=== PATIENT | male | born 1955 | race Two or more races ===

== ENCOUNTER 2016-10-28 17:05 | Inpatient (IN) | payer MEDICARE, MEDICAID ==
[~2016-10-28] VITALS: Ht 182.9 cm; Wt 122.5 kg
[~2016-10-28 17:05] MED LIST: ALLOPURINOL300 M1 ORAL; AMLODIPINE BESY10 MG ORAL; ASPIRIN-LOW81 MG ORAL; BP med; CALCITRIOL0.25 MCG PO; CARVEDILOL25 MG ORAL; FOLIC ACID1 MG ORAL; FUROSEMIDE40 MG ORAL; FUROSEMIDE80 MG ORAL; HYDRALAZINE HCL25 M1 ORAL; KEFLEX500 MG ORAL; LASIX40 MG ORAL; LEVEMIR FL100 UNIT/1 SUBQ; LIPITOR80 MG ORAL; LOVENOX10 M3 SUBQ; METOPROLOL TART50 MG ORAL; NORCO 5-325 TA1 EACH ORAL; NOVOLIN 70100 UNIT/1 SUBQ; RANITIDINE HCL150 MG ORAL; RENVELA800 MG ORAL; TAMSULOSIN HCL0.4 MG ORAL; WARFARIN SODIU2.5 MG ORAL; ZAROXOLYN2.5 MG ORAL
--- NOTE | 2016-10-28 17:54 | Emergency Room Report ---
History of Present Illness General Chief Complaint: Generalized Weakness Source: Patient Present Illness HPI Patient is a 61-year-old male who presented after increased weakness and dizziness. The patient noted to have prior history of end-stage renal disease and is normally dialyzed Saturday. The patient said he was dialyzed yesterday. The patient reported having blood sugar in the 60s at the time. The patient normally has a blood sugars which is slightly more elevated. The patient denies any shortness of breath. He denies any recent fevers. He reports some dietary indiscretion Allergies: Coded Allergies: No Known Allergies (Unverified , 06/01/14) Patient History Past Medical History: see triage record, DM, HTN, renal disease, dialysis Reviewed Nursing Documentation: PMH: Agreed, PSxH: Agreed Nursing Documentation-PMH Past Medical History: No History, Except For Hx Cardiac Problems: Yes Hx Hypertension: Yes Hx Diabetes: Yes Hx Cancer: No Hx Gastrointestinal Problems: Yes Hx Dialysis: Yes - , Sat Hx Neurological Problems: No Hx Cerebrovascular Accident: Yes - 2012 Review of Systems All Other Systems: negative except mentioned in HPI Physical Exam Vital Signs Date Time Temp Pulse Resp B/P Pulse Ox O2 Delivery O2 Flow Rate FiO2 10/28/16 17:13 97.7 86 18 115/61 98 Room Air Sp02 EP Interpretation: reviewed, normal General Appearance: normal inspection, well appearing, no apparent distress, alert, GCS 15 Head: atraumatic ENT: normal ENT inspection, hearing grossly normal, normal voice Neck: normal inspection, full range of motion, supple, no bony tend Respiratory: normal inspection, lungs clear, normal breath sounds, no respiratory distress, no retraction, no wheezing Cardiovascular #1: regular rate, rhythm, no edema Gastrointestinal: normal inspection, normal bowel sounds, non tender, soft, no guarding, no hernia Genitourinary: no CVA tenderness Musculoskeletal: normal inspection, back normal, normal range of motion Neurologic: normal inspection, alert, oriented x3, responsive, dry ice maker III-XII nml as tested, speech normal Psychiatric: normal inspection, judgement/insight normal, mood/affect normal Skin: normal inspection, normal color, no rash Medical Decision Making Diagnostic Impression: Primary Impression: ESRD (end stage renal disease) on dialysis Additional Impressions: Hypoglycemia associated with diabetes Brain edema ER Course Patient presented for weakness. Differential diagnosis included was not limited to anemia, urinary tract infection, electrolyte abnormality, hypothyroidism, myocardial infarction, myasthenia gravis, dehydration, among others. The patient noted to have a nonfocal neurologic exam. Because of complexity of patient's case laboratory testing and imaging studies were ordered. EKG interpreted by me showed normal sinus rhythm with a rate of [address] changes. Patient noted have some peaking of his T waves . Patient placed on a panel monitor. Rhythm strips interpreted by me showed normal sinus rhythm with rate of 82 without PVCs or ectopyCT the head read by radiology showed some edema consistent with a possible mass. There is no midline shift noted. Patient states symptoms were on the left side. The patient states he's had prior CVA on the right side.Dr. Jus Gómez was contacted for inpatient management Labs Test 10/28/16 17:55 White Blood Count 8.9 K/UL (4.8-10.8) Red Blood Count 3.92 M/UL (4.70-6.10) Hemoglobin 12.0 G/DL (14.2-18.0) Hematocrit 37.9 % (42.0-52.0) Mean Corpuscular Volume 97 FL (80-99) Mean Corpuscular Hemoglobin 30.5 PG (27.0-31.0) Mean Corpuscular Hemoglobin Concent 31.6 G/DL (32.0-36.0) Red Cell Distribution Width 16.2 % (11.6-14.8) Platelet Count 181 K/UL (150-450) Mean Platelet Volume 7.5 FL (6.5-10.1) Neutrophils (%) (Auto) 67.3 % (45.0-75.0) Lymphocytes (%) (Auto) 16.2 % (20.0-45.0) Monocytes (%) (Auto) 9.9 % (1.0-10.0) Eosinophils (%) (Auto) 4.5 % (0.0-3.0) Basophils (%) (Auto) 2.1 % (0.0-2.0) Last Vital Signs Date Time Temp Pulse Resp B/P Pulse Ox O2 Delivery O2 Flow Rate FiO2 10/28/16 17:13 97.7 86 18 115/61 98 Room Air Status: unchanged Disposition: ADMITTED INPATIENT Condition: Serious Morgan Squires Oct 28, 2016 17:54
[2016-10-28 18:16] LABS: BASOPHILS % (AUTO) 2.1 % (0.0-2.0); EOSINOPHILS % (AUTO) 4.5 % (0.0-3.0); LYMPHOCYTES % (AUTO) 16.2 % (20.0-45.0); MEAN CORPUSCULAR HEMOGLOBIN 30.5 PG (27.0-31.0); MEAN CORPUSCULAR HGB CONC 31.6 G/DL (32.0-36.0); MEAN CORPUSCULAR VOLUME 97 FL (80-99); MEAN PLATELET VOLUME 7.5 FL (6.5-10.1); MONOCYTES % (AUTO) 9.9 % (1.0-10.0); NEUTROPHILS % (AUTO) 67.3 % (45.0-75.0); PLATELET COUNT 181 K/UL (150-450); RED BLOOD COUNT 3.92 M/UL (4.70-6.10); RED CELL DISTRIBUTION WIDTH 16.2 % (11.6-14.8); WHITE BLOOD COUNT 8.9 K/UL (4.8-10.8)
[2016-10-28 18:48] LABS: ALBUMIN/GLOBULIN RATIO 0.8 (1.0-2.7); CALCIUM 10.4 mg/dL (8.6-10.2); CREATININE 10.7 mg/dL (0.7-1.2); GLOMERULAR FILTRATION RATE 4.9 mL/min (>60); TOTAL PROTEIN 8.5 g/dL (6.6-8.7)
[2016-10-28 18:50] VITALS: BP 119/57
[2016-10-28 18:50] LABS: POTASSIUM 6.1 mEQ/L (3.4-4.9)
[2016-10-28 18:56] LABS: TROPONIN I < 0.30 ng/mL (<=0.30)
[2016-10-28] MEDS ORDERED: Sodium Polystyrene Sulfonate 15gm Powder ORAL ONE (19:00)
[2016-10-28 19:23] LABS: CKMB 4.1 ng/mL (< 6.7)
[2016-10-28 19:40] VITALS: BP 131/55
[2016-10-28] MEDS ORDERED: Calcium Gluconate 1gm/10ml vial IVP ONE (20:30)
[2016-10-28 21:35] VITALS: BP 148/61
--- NOTE | 2016-10-28 22:13 | Consultation ---
Consult Note Consult Note # [id number] Assessment/Plan status: 1) Inability to ambulate- ? Neuropathy (2) Chronic Cellulitis LEs (3) ESRD (end stage renal disease) on dialysis, High K (4) IDDM (insulin dependent diabetes mellitus) (5) Peripheral edema (6) HTN (hypertension) Plan: Neuro eval HD in am BP and BS control MARIANNE CLEMENTE Oct 28, 2016 22:13
[2016-10-28 23:15] VITALS: BP 142/64
[2016-10-28 23:40] VITALS: BP 117/55
[2016-10-29] MEDS: NovoLOG Insulin Flexpen SUBQ SCH ×4 (05:54→22:05)
[2016-10-29 06:46] VITALS: BP 136/63
[2016-10-29 08:00] VITALS: BP 99/45
[2016-10-29] MEDS: Carvedilol 25mg Tab ORAL SCH ×2 (08:30→22:07)
[2016-10-29 08:36] LABS: BASOPHILS % (AUTO) 1.6 % (0.0-2.0); EOSINOPHILS % (AUTO) 5.6 % (0.0-3.0); LYMPHOCYTES % (AUTO) 17.6 % (20.0-45.0); MEAN CORPUSCULAR HEMOGLOBIN 30.7 PG (27.0-31.0); MEAN CORPUSCULAR HGB CONC 31.9 G/DL (32.0-36.0); MEAN CORPUSCULAR VOLUME 96 FL (80-99); MEAN PLATELET VOLUME 7.2 FL (6.5-10.1); MONOCYTES % (AUTO) 10.4 % (1.0-10.0); NEUTROPHILS % (AUTO) 64.8 % (45.0-75.0); PLATELET COUNT 178 K/UL (150-450); RED BLOOD COUNT 3.73 M/UL (4.70-6.10); RED CELL DISTRIBUTION WIDTH 16.1 % (11.6-14.8); WHITE BLOOD COUNT 8.2 K/UL (4.8-10.8)
[2016-10-29] MEDS: Aspirin EC 81mg tab ORAL SCH (08:52)
[2016-10-29] MEDS: Docusate 100mg cap ORAL SCH ×3 (08:52→17:12)
[2016-10-29 08:54] LABS: ALANINE AMINOTRANSFERASE 6 U/L (3-41); ALBUMIN/GLOBULIN RATIO 0.8 (1.0-2.7); ANION GAP 23 (5-15); ASPARTATE AMINO TRANSFERASE 11 U/L (5-40); CALCIUM 9.5 mg/dL (8.6-10.2); CARBON DIOXIDE 16 mEQ/L (20-30); CHLORIDE 91 mEQ/L (98-107); CHOLESTEROL 130 mg/dL (< 200); CHOLESTEROL/HDL RATIO 3.8 (3.3-4.4); CRP QUANT 3.1 mg/dL (< 0.5); GLOMERULAR FILTRATION RATE 4.3 mL/min (>60); HEMOLYSIS 1; LDL CHOLESTEROL (CALC.) 71 mg/dL (60-99); MAGNESIUM 2.4 mg/dL (1.7-2.5); PHOSPHORUS 10.6 mg/dL (2.5-4.8); SODIUM 130 mEQ/L (135-145); TOTAL PROTEIN 7.8 g/dL (6.6-8.7)
[2016-10-29 08:56] LABS: POTASSIUM 6.2 mEQ/L (3.4-4.9)
--- NOTE | 2016-10-29 09:41 | Diagnostic Imaging Report ---
Indications: 2-3 day history of dizziness, weakness, imbalance; right temporoparietal white matter edema on CT scan requiring further evaluation Technique: Coronal, Sagittal and axial T1 weighted and T2-weighted FLAIR, axial T2-weighted fat saturated fast spin echo propeller, T2*-weighted gradient echo, and diffusion sequences of the brain were performed without IV gadolinium administration. Findings: Comparison: Noncontrast CT brain performed earlier today 13 x 15 x 17 sharply circumscribed mass is present in the anterior periphery of the right middle cranial fossa, broadly based against the endosteal surface of the skull, indenting brain parenchyma. It is generally isointense to adler matter on T1-weighted images, slightly hyperintense on T2-weighted images, and demonstrates no susceptibility artifact on gradient echo images were restricted diffusion. There is a prominent amount of signal change compatible with edema in the subjacent right temporal white matter, extending into the white matter adjacent portions of right parietal operculum, internal and external capsules. No overlying adler matter edema is evident. There is suggestion of mild segmental, asymmetric thickening of the overlying skull. 3 cm wedge-shaped, peripherally based area of signal change/parenchymal loss is present in the periphery of the posterior aspect of the left parietal lobe with subjacent surrounding white matter T2 signal hyperintensity. Additional foci of T2 signal hyperintensity are scattered throughout the bilateral cervical periventricular, deep, and subcortical white matter. Some of the deeper lesions are oriented perpendicularly to the long axis of the lateral ventricles. No obvious corpus callosum involvement. No evidence of hemorrhage, other signal abnormality, mass effect, midline shift, hydrocephalus, or increased intracranial pressure. No restricted diffusion. Central vascular flow voids are preserved. Sharply circumscribed, smoothly marginated ovoid masslike lesion is present in the region of posterior aspect of each lateral rectus muscle of the orbits. These are best demonstrated on axial T2 fat-saturated fast spin-echo images, the right lesion measuring 10 x 3 mm and the left 12 x 6 mm. Each is near-fluid hypointense on T1-weighted images and moderately hyperintense on T2-weighted images including fat-saturated images, though not as intense as fluid. The superior orbital vein is prominent in each orbit and there is suggestion of each lesion communicating with these. No other obvious orbital abnormality demonstrated. IMPRESSION: 1.7 cm mass in the right middle cranial fossa as described, evaluation limited due to lack of postgadolinium sequencing, but most likely represent meningioma. This is likely responsible for subjacent white matter edema. Postgadolinium imaging recommended with immediate dialysis thereafter. Old infarct with surrounding gliosis posterior aspect left parietal lobe Bilateral cervical white matter multifocal signal hyperintensity, nonspecific, most likely chronic microangiopathic in nature. However, other etiologies including demyelinating disease must be considered. Bilateral intraorbital extraconal lesions as described, nonspecific. These may the do not definitely represent segments of enlarged bilateral superior orbital veins. Dedicated MRI of the orbits without and with gadolinium recommended with immediate dialysis thereafter.
[2016-10-29] MEDS: Aluminum Hydroxide Gel Susp 15ml ORAL SCH ×4 (10:25→22:06)
--- NOTE | 2016-10-29 11:20 | Diagnostic Imaging Report ---
Indications: 2-3 days of cephalgia, weakness, imbalance Technique: Continuous helical CT imaging of the brain was performed with nonionic exposure control on a Siemens sensation [address] scanner. Axial and coronal images were reconstructed at 5 mm slice thickness and interval. CTDI volume(s): 70 mGy Total DLP: 1383 mGy-cm Findings: Comparison: None Extensive low attenuation is present throughout the white matter of the right temporal lobe, extending into the white matter adjacent portions of right parietal operculum, internal and external capsules. No obvious adler matter involvement. Wedge-shaped, peripherally based focus of low attenuation/parenchymal loss posterior aspect left parietal lobe. Mild low attenuation bilateral cerebral periventricular white matter. Ventricles, cisterns, and sulci are diffusely prominent. No evidence of mass or hemorrhage, mass effect, midline shift, hydrocephalus, or increased intracranial pressure. Bone window images are unremarkable. Visualized paranasal sinuses and mastoid air cells are clear. IMPRESSION: Right temporoparietal white matter edema, atypical for ischemia/infarct, coronary neoplasm or inflammatory process. MRI of the brain without and with gadolinium recommended for further evaluation. Old infarct posterior aspect left parietal lobe. Bilateral cerebral periventricular white matter low attenuation, nonspecific, likely chronic microvascular ischemic in nature. Atrophy Critical results and recommendations discussed with Dr. Squires, physician, by telephone 10/29/2015 at approximately [address] scanner at [facility] is accredited by the [employer] and the scans are performed using protocols designed to limit radiation exposure to as low as reasonably achievable to attain images of sufficient resolution adequate for diagnostic evaluation.
--- NOTE | 2016-10-29 11:44 | General Progress Note ---
Assessment/Plan Status: unchanged Assessment/Plan status; 1) Inability to ambulate- ? Neuropathy (2) Chronic Cellulitis LEs (3) ESRD (end stage renal disease) on dialysis, High K (4) IDDM (insulin dependent diabetes mellitus) (5) Peripheral edema (6) HTN (hypertension) Plan: Neuro eval HD today- BP and BS control- PT OT Subjective ROS Limited/Unobtainable: No Constitutional: Reports: malaise, weakness Allergies: Coded Allergies: No Known Allergies (Unverified , 06/01/14) Objective Last 24 Hour Vital Signs Date Time Temp Pulse Resp B/P Pulse Ox O2 Delivery O2 Flow Rate FiO2 10/29/16 08:30 80 99/45 10/29/16 08:00 92 10/29/16 08:00 98.1 80 19 99/45 91 Room Air 10/29/16 06:46 97.0 91 19 136/63 95 Room Air 10/29/16 04:02 97 10/28/16 23:40 97.7 95 18 117/55 96 Room Air 10/28/16 23:33 97.7 82 18 142/64 97 Room Air 10/28/16 23:15 97.7 82 18 142/64 97 Room Air 10/28/16 21:35 97.7 87 16 148/61 97 Room Air 10/28/16 19:40 97.7 83 16 131/55 97 Room Air 10/28/16 18:50 82 14 119/57 97 Room Air 10/28/16 17:13 97.7 86 18 115/61 98 Room Air Laboratory Tests 10/28/16 17:55: White Blood Count 8.9, Red Blood Count 3.92L, Hemoglobin 12.0L, Hematocrit 37.9L , Mean Corpuscular Volume 97, Mean Corpuscular Hemoglobin 30.5, Mean Corpuscular Hemoglobin Concent 31.6L, Red Cell Distribution Width 16.2H, Platelet Count 181, Mean Platelet Volume 7.5, Neutrophils (%) (Auto) 67.3, Lymphocytes (%) (Auto) 16.2L, Monocytes (%) (Auto) 9.9, Eosinophils (%) (Auto) 4.5H, Basophils (%) (Auto) 2.1H, Sodium Level 134L, Potassium Level 6.1*H, Chloride Level 93L, Carbon Dioxide Level 22, Anion Gap 19H, Blood Urea Nitrogen 55H, Creatinine 10.7H, Estimat Glomerular Filtration Rate 4.9, Glucose Level 107H, Calcium Level 10.4H, Total Bilirubin 0.2, Aspartate Amino Transf (AST/SGOT ) 10, Alanine Aminotransferase (ALT/SGPT) 8, Alkaline Phosphatase 109, Total Creatine Kinase 92, Creatine Kinase MB 4.1, Creatine Kinase MB Relative Index 4.4, Troponin I < 0.30, Total Protein 8.5, Albumin 4.0, Globulin 4.5, Albumin/ Globulin Ratio 0.8L 10/29/16 08:30: White Blood Count 8.2, Red Blood Count 3.73L, Hemoglobin 11.5L, Hematocrit 35.9L , Mean Corpuscular Volume 96, Mean Corpuscular Hemoglobin 30.7, Mean Corpuscular Hemoglobin Concent 31.9L, Red Cell Distribution Width 16.1H, Platelet Count 178, Mean Platelet Volume 7.2, Neutrophils (%) (Auto) 64.8, Lymphocytes (%) (Auto) 17.6L, Monocytes (%) (Auto) 10.4H, Eosinophils (%) (Auto ) 5.6H, Basophils (%) (Auto) 1.6, Sodium Level 130L, Potassium Level 6.2*H, Chloride Level 91L, Carbon Dioxide Level 16L, Anion Gap 23H, Blood Urea Nitrogen 63H, Creatinine 12.0H, Estimat Glomerular Filtration Rate 4.3, Glucose Level 190H, Calcium Level 9.5, Total Bilirubin 0.3, Aspartate Amino Transf (AST/ SGOT) 11, Alanine Aminotransferase (ALT/SGPT) 6, Alkaline Phosphatase 102, Total Creatine Kinase 77, Total Protein 7.8, Albumin 3.6, Globulin 4.2, Albumin/ Globulin Ratio 0.8L, Hemoglobin A1c 9.0H, Uric Acid 7.0, Phosphorus Level 10.6H , Magnesium Level 2.4, Gamma Glutamyl Transpeptidase 24, C-Reactive Protein, Quantitative 3.1H, Pro-B-Type Natriuretic Peptide 1535H, Triglycerides Level 127 , Cholesterol Level 130, LDL Cholesterol 71, HDL Cholesterol 34, Cholesterol/ HDL Ratio 3.8, Thyroid Stimulating Hormone (TSH) 1.100 Height (Feet): 6 Height (Inches): 0.00 Weight (Pounds): 270 General Appearance: no apparent distress, other - obese Cardiovascular: normal rate Respiratory/Chest: decreased breath sounds Abdomen: soft, other - obese Edema: 1+ Leg (L), 1+ Leg (R) Skin: other - chronic skin changes lower exteremities Objective no other changes MARIANNE CLEMENTE Oct 29, 2016 11:44
[2016-10-29 12:00] VITALS: BP 109/62
--- NOTE | 2016-10-29 12:20 | Diagnostic Imaging Report ---
Indications: Chest pain Technique: Portable AP chest Findings: Comparison: 11/29/2015 Cardio megaly, pulmonary vascular redistribution, bilateral interstitial prominence persists, apparently mildly decreased. Linear density persists in left lung base. No pleural abnormalities demonstrated. Hemodialysis catheter has been placed and left chest wall, tip in region of right atrium. IMPRESSION: Bilateral congestive changes, persistent versus recurrent and somewhat less severe than on previous exam Stable subsegmental atelectasis versus scarring left lung base Placement of left-sided hemodialysis catheter, tip in right atrium
[2016-10-29] MEDS ORDERED: Levemir Flexpen SUBQ ONE (12:30)
[2016-10-29] MEDS: Levemir Flexpen SUBQ SCH (12:56)
[2016-10-29 16:00] VITALS: BP 98/62
--- NOTE | 2016-10-29 17:15 | History and Physical Report ---
DATE OF ADMISSION: 10/28/2016 The patient was seen in the emergency room late 10/28/2016. HISTORY OF PRESENT ILLNESS: The patient is a 61-year-old male, who is under my care for his management of outpatient hemodialysis condition. The patient apparently came in to emergency room with generalized weakness and expressing that he could not ambulate when he was out with his . PAST MEDICAL HISTORY: Significant for diabetes mellitus, hypertension, and end-stage renal disease, requiring dialysis. The patient receives insulin for his blood sugar. The patient recently has seen Dr. Gaurav Jarvis, the neurologist, for his leg pains and weakness and was diagnosed with diabetic neuropathy. Upon evaluation in the emergency room, the patient was found to be hyperkalemic and most likely, his blood sugar was thought to be low contributing to his inability to maintain his gait. The patient is admitted for further management. PHYSICAL EXAMINATION: VITAL SIGNS: At this time, when examined in emergency room, temperature 97.7 degrees, pulse rate 86, respiratory rate 18, and blood pressure 116/61. GENERAL: Weak. Slightly tremors. HEENT: Sclerae, not icteric. Head, normocephalic. NECK: Full. LUNGS: Poor inspiratory effort. Decreased breath sounds over the bases. HEART: Regular. Slightly tachycardic. ABDOMEN: Obese. EXTREMITIES: Lower extremities, chronic skin changes. A 1+ edema. NEUROLOGIC: Decreased sensory over the both extremities and somewhat ataxic. LABORATORY AND DIAGNOSTIC DATA: Initial laboratory data, hemoglobin 12. Blood sugar 107. Potassium 6.1 and creatinine 10.7. The head CT was old infarct in the posterior aspect of the left parietal pole and right temporoparietal white matter edema. The MRI was ordered as a result of the head CT results, which MRI impression was 1.7 cm mass in the right middle cranial fossa area and also old infarct. IMPRESSION: This 61-year-old male with end-stage renal disease, on hemodialysis and diabetes mellitus with diabetic neuropathy is admitted with inability to walk and has abnormal brain CT and MRI. PLAN: Hemodialysis today. Keep the potassium and blood sugar under control. Neuro evaluation and according to how the condition evolves, we will make the proper changes in our future management. Jus Gómez M.D. DR: BALA JOB#: [id number] CC:
[2016-10-29 20:00] VITALS: BP 155/79
[2016-10-29] MEDS: Heparin 5000 units/ml inj SUBQ SCH (22:06)
[2016-10-29] MEDS: Atorvastatin 80mg tab ORAL SCH (22:07)
--- NOTE | 2016-10-29 22:18 | Consultation ---
Consult Note Consult Note NEUROLOGY CONSULTATION: Full note dictated #[id number] 61 y/o, RH, HM with PH of HTN, DM, DL, ESRD on HD, CVD with stroke with vertigo and a 8-10 month H/O unsteadiness on his feet due to a sensory neuropathy most probably DM related. For the last 2 days [employer] he had been feeling increasingly unsteady on his feet and felt that he may fall down. He also felt generally unwell and was thus evaluated in the [facility] on 10/28/16. He was hyperkalemic and had elevated BS. A brain CT was done and revealed old CVD + right temporal vasogenic edema. An MRI was then done and revealed a right MCF dural based mass with significant surrounding vasogenic edema. ON EXAM: Mild memory problems. Trace left VII central Brisker left knee jerk Decreased PP/LT in anklet stocking distribution Decreased position in toes Sway on Romberg Wide based stance & gait. IMPRESSION: 1. Unsteady gait due to distal sensory neuropathy made worse by electrolyte imbalances. 2. 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 3. Smoothly marginated ovoid mass lesions in the region of posterior aspect of each lateral rectus muscle of the orbits - exact pathology unknown. REC: MRI of brain and orbits (without and with carrington) to evaluate mass lesions. HD as soon as MRI is done - Have informed Dr. Gómez who will arrange HD. Better control of DM. Correct electrolyte imbalances. Carmelo Jarvis M.D., M.S.P.Benoit. CARMELO JARVIS Oct 29, 2016 22:18
--- NOTE | 2016-10-29 23:45 | Consultation ---
DATE OF CONSULTATION: 10/29/2016 NEUROLOGY CONSULTATION CONSULTING PHYSICIAN: Gaurav Jarvis M.D. REQUESTING PHYSICIAN: Jus Gómez M.D. HISTORY: Mr. Alex Min is a 61-year-old, right-handed, gentleman, who does have past history of hypertension, diabetes mellitus, dyslipidemia, end-stage renal disease for which he is hemodialysis dependent, cerebrovascular disease with a stroke and vertigo, and 8 to 10 month history of unsteadiness on his feet which was evaluated and was thought to be related to the sensory neuropathy, most probably related to his diabetes mellitus that is not well controlled. He was functioning relatively well until approximately two days prior to admission when he had a feeling of being increasingly unsteady on his feet and he felt that he may fall down. He never actually fell down. He also felt generally unwell and weak. When asked what he meant by weak, he denies any true weakness in his muscles but did feel that he was generally low in energy. As a result of that, he was sent to the [facility] emergency room on 10/28/2016. He was evaluated in the emergency room and was found to be hyperkalemic, had elevated blood sugars. He also had a CT scan of the brain performed and the CT scan of the brain revealed old cerebrovascular disease with prior strokes and in addition an area of vasogenic edema in the right temporal region. 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 This consultation was requested by Dr. Gómez to evaluate the patient for his abnormal imaging studies and unsteadiness on his feet. At this point in time, the patient feels much better. He feels that he is again steady on his feet, and walking is very similar to what it was a few months ago. He denies any specific weakness on one side or the other, numbness on one side or the other, problems with speech, problems with language, problems with vision, or problems with his memory. He also denies any headaches, nausea, vomiting, or any other neurological symptoms. PAST MEDICAL HISTORY: Significant for diabetes mellitus for the last 20 years or so, high blood pressure and high cholesterol for the last 5 years or so, kidney problems for the last 5 years and hemodialysis for the last 2 years, and a stroke 4 years ago. FAMILY HISTORY: Nothing significant. PERSONAL HISTORY: Home: He lives with his . 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 Habits: He smoked for approximately 20 years in the past. He stopped smoking when he had his stroke. He used to drink alcohol sometimes in excess in the past, but again stopped drinking after his stroke. He denies use of any illicit drugs. PRESENT MEDICATIONS: Include insulin, Lipitor, heparin for DVT prophylaxis, Renvela, Amphojel, aspirin 81 mg daily, Coreg, DSS, and clonidine. PHYSICAL EXAMINATION: GENERAL: He is a well-developed and well-nourished, obese gentleman, lying in bed, in no acute distress. VITAL SIGNS: Pulse 58/minute , blood pressure 155/79 mmHg, respirations 18 per minute, and temperature 97.7 degrees Fahrenheit. HEAD: Normocephalic and atraumatic. EENT: Examination benign NECK: No neck rigidity was observed. NEUROLOGIC EXAMINATION: MENTAL STATUS EXAMINATION: He was awake and alert. He was oriented to person, place, and time. He was able to recall 3/3 words immediately after 1 and 3 minutes. He was able to remember president, Trump spontaneously but needed hints to remember through Obama. He could not remember presidents prior to that. His mathematical skills were fairly good. His visuospatial function was preserved. SPEECH: He had no dysarthria. LANGUAGE: He had no aphasia. CRANIAL NERVE EXAMINATION: II: The visual lay were intact to confrontation testing. III, IV & : The external ocular movements were full and the pupils were 3 mm in diameter, equal, round, regular, and reactive to light. V: He had normal facial sensations and the temporales, masseters, and pterygoids functioned normally. VII: He had a trace left VII central facial paresis. VIII: He was able to hear well bilaterally and had no nystagmus. IX: The palate moved symmetrically on phonation. X: He had no hoarseness of voice. XI: The sternocleidomastoids and trapezii functioned normally. XII: The tongue was in the midline without any fasciculations or atrophy. MOTOR SYSTEM: The tone was normal in all four extremities. Examination of muscle mass revealed wasting of the small foot muscles. Examination of power revealed grade 5/5 power in all muscle groups tested. He had no pronator drift. SENSORY EXAMINATION: He had intact sensations to pinprick and light touch except for altered sensations to both these modalities in an anklet stocking distribution. Position sense was diminished in the toes bilaterally but was normal in the fingers bilaterally. Graphesthesia was normal bilaterally. COORDINATION: He performed well on velnys-je-fnoa and uvic-wx-bweb testing. On Romberg test, he swayed but did not fall to one side or the other. REFLEXES: 2+ and bilaterally symmetrical at the biceps, triceps, and brachioradialis, 2+ on the right and 3+ on the left at the knees, 0 at both ankles. The plantar responses were flexor bilaterally. STANCE: He stood up with a wide-base. GAIT: He walked with a wide-based gait. When he was made to walk on his heels and toes in both feet sagged. DIAGNOSTIC IMPRESSION: 1. Mr. 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 He became unsteady on his feet two days prior to admission and in addition felt unwell and generally weak, since he has been hospitalized yesterday he feels much better. 2. On neurological examination at this time he does have mild problems with memory, a trace left VII central facial paresis, brisker left knee jerk, decreased sensations to pinprick and light touch in anklet stocking distribution, decreased position sense in the toes bilaterally, swaying on Romberg test, a wide-based stance and gait with sagging of both feet when he is made to walk on his heels and toes. 3. Laboratory Data revealed that he was anemic with a hemoglobin of 11.5. He was hyponatremic with a sodium of 130 and chloride of 91, he was hyperkalemic with potassium of 6.2, his creatinine was elevated to 12.0, BUN was elevated to 63, his blood glucose was elevated to 190 and his hemoglobin A1c was elevated to 9%. His BNP was also elevated to 1535. His B12 level was normal at 495 and TSH was normal at 1.1. 4. The CT scan of the brain without contrast performed on 10/28/2016 revealed vasogenic edema involving the right temporal lobe extending into the right parietal area, internal and external capsules. In addition he also exhibited an old infarct in the left parietal lobe and some deep white matter changes. 5. The MRI scan of the brain performed on 10/28/2016 revealed a 13 x 15 x 17 mm sharply circumcised mass in the inferior periphery of the right middle cranial fossa with significant surrounding vasogenic edema. In addition, an old left parietal infarct was also seen. Sharply contoured smoothly marginated ovoid masses were present in the region of the posterior aspects of each lateral rectus muscle of the orbits. The exact characteristics of these masses was uncertain. 6. The patient's history neurological examination, laboratory data, and imaging studies are most compatible with unsteadiness on his feet related to the underlying neuropathic process with super added electrolyte imbalances causing worsening of his unsteadiness. 7. The exact pathology of the right middle cranial fossa mass lesion is uncertain at this point in time, it may be a dural-based lesion inciting a significant amount of vasogenic edema. However it does not explain his unsteadiness on the feet. It does however explain his mild left VII central facial paresis, brisker reflexes in the left knee and the memory problems that were not seen on his prior examination in August 2016. 8. The lesions involving his lateral rectus muscles are again unclear with regards to the exact pathology. RECOMMENDATIONS: 1. Agree with management thus far. 2. The patient's diabetes mellitus should be controlled better. 3. The patient's electrolyte imbalances should be corrected. 4. An MRI scan of the brain and orbits without and with gadolinium should be performed to better evaluate the mass lesions involving the right middle cranial fossa and the orbits; however, as soon as the MRI scan has been done the patient should get hemodialysis to dialyze out the gadolinium. 5. I have informed Dr. Gómez, who will arrange for the hemodialysis as soon as the scans are done. Thank you for entrusting me with the care of Mr. Min. I shall follow him with you. Gaurav Jarvis M.D., M.S.P.H. DR: Jude JOB#: [id number] MTDD
[2016-10-30] VITALS: BP 148/79
[2016-10-30 04:29] VITALS: BP 117/62
[2016-10-30] MEDS: NovoLOG Insulin Flexpen SUBQ SCH ×4 (06:30→21:22)
[2016-10-30 08:20] LABS: ALBUMIN/GLOBULIN RATIO 0.8 (1.0-2.7); CALCIUM 10.3 mg/dL (8.6-10.2); CREATININE 10.6 mg/dL (0.7-1.2); PHOSPHORUS 9.5 mg/dL (2.5-4.8)
[2016-10-30 08:38] VITALS: BP 125/66
[2016-10-30] MEDS: Aspirin EC 81mg tab ORAL SCH (08:52)
[2016-10-30] MEDS: Aluminum Hydroxide Gel Susp 15ml ORAL SCH ×4 (08:52→22:18)
[2016-10-30] MEDS: Docusate 100mg cap ORAL SCH ×3 (08:52→17:33)
[2016-10-30] MEDS: Carvedilol 25mg Tab ORAL SCH ×2 (08:53→21:33)
[2016-10-30] MEDS: Heparin 5000 units/ml inj SUBQ SCH ×2 (08:55→21:16)
[2016-10-30] MEDS: Levemir Flexpen SUBQ SCH ×2 (08:56→21:36)
--- NOTE | 2016-10-30 09:49 | General Progress Note ---
Assessment/Plan Status: stable Assessment/Plan status; 1) Inability to ambulate- ? Neuropathy and abnormal MRI of brain: MRI scan of the brain performed on 10/28/2016 reveals a 13 x 15 x 17 mm sharply circumcised mass in the inferior periphery of the right middle cranial fossa with significant surrounding vasogenic edema. (2) Chronic Cellulitis LEs (3) ESRD (end stage renal disease) on dialysis, High K (4) IDDM (insulin dependent diabetes mellitus) (5) Peripheral edema (6) HTN (hypertension) Plan: Neuro eval HD today again after MRI with & without contrast BP and BS control- PT OT per Neuro Subjective ROS Limited/Unobtainable: No Constitutional: Reports: malaise Allergies: Coded Allergies: No Known Allergies (Unverified , 06/01/14) Objective Last 24 Hour Vital Signs Date Time Temp Pulse Resp B/P Pulse Ox O2 Delivery O2 Flow Rate FiO2 10/30/16 08:53 86 125/66 10/30/16 08:38 98.1 86 18 125/66 95 Room Air 10/30/16 04:29 98.1 75 20 117/62 95 Room Air 10/30/16 04:00 80 10/30/16 02:00 82 10/30/16 00:00 97.6 90 18 148/79 98 Room Air 10/29/16 22:07 75 155/79 10/29/16 20:00 97.5 88 18 155/79 98 Room Air 10/29/16 20:00 77.5 88 18 155/79 98 Room Air 10/29/16 20:00 81 10/29/16 16:04 Room Air 10/29/16 16:00 97.7 83 17 98/62 97 Room Air 10/29/16 16:00 80 10/29/16 15:57 Room Air 10/29/16 12:00 86 10/29/16 12:00 97.5 85 20 109/62 97 Room Air 10/29/16 11:00 Room Air Intake and Output 10/29/16 10/30/16 19:00 07:00 Intake Total 180 ml Output Total 2200 ml Balance -2200 ml 180 ml Intake Oral 180 ml Output Hemodialysis UF 2200 ml # Voids 1 Laboratory Tests 10/29/16 12:34: Vitamin B12 Level 495, Folate [Pending] 10/30/16 07:20: Sodium Level 136, Potassium Level 5.0H, Chloride Level 92L, Carbon Dioxide Level 22, Anion Gap 22H, Blood Urea Nitrogen 53H, Creatinine 10.6H, Estimat Glomerular Filtration Rate 5.0, Glucose Level 102, Calcium Level 10.3H, Phosphorus Level 9.5H, Total Bilirubin 0.4, Aspartate Amino Transf (AST/SGOT) 11 , Alanine Aminotransferase (ALT/SGPT) 7, Alkaline Phosphatase 98, Total Protein 8.0, Albumin 3.7, Globulin 4.3, Albumin/Globulin Ratio 0.8L Height (Feet): 6 Height (Inches): 0.00 Weight (Pounds): 270 General Appearance: no apparent distress Respiratory/Chest: decreased breath sounds Abdomen: soft, distended Objective no other changes MARIANNE CLEMENTE Oct 30, 2016 09:49
[2016-10-30] MEDS: Thiamine 100mg tab ORAL SCH (10:09)
[2016-10-30] MEDS: Vitamin B12 1000mcg/ml Inj SUBQ SCH (10:10)
[2016-10-30 12:11] VITALS: BP 149/79
--- NOTE | 2016-10-30 14:59 | Diagnostic Imaging Report ---
Indication: Abnormal recent noncontrast brain MRI and CT scan, 2-3 day history of cephalgia, weakness, imbalance Technique: sagittal T1 fast spin echo, axial T1 and T2 FLAIR PROPELLER, axial T2 FS PROPELLER, T2* GRE, axial diffusion weighted images, post contrast axial and coronal T1 FLAIR PROPELLER images. ADC and exponential ADC maps generated Comparison: CT scan and MRI dates is 10/28/2016 Findings: In the anterior aspect of the middle temporal fossa on the right, there is a homogeneously intensely enhancing extra-axial mass which measures 15 mm transverse by 14 mm AP by 13 mm craniocaudad. This demonstrates adjacent dural thickening and enhancement. There is considerable edema in the right anterior temporal deep white matter. There is also some increased T2 signal in the adjacent cortex. The tip of the temporal lobe is displaced posteriorly, and there is slight attenuation of the tip of the temporal horn of the right lateral ventricle. There is local attenuation of the sulci. Otherwise, there is no significant mass effect or midline shift. The lesion does not exhibit any significant diffusion abnormality. No other abnormal contrast enhancement is evident. As described previously, there is encephalomalacia involving the left posterior temporal lobe and extending into the adjacent occipital lobe. No abnormal areas of restricted diffusion to suggest acute infarction. No acute hemorrhage or edema. No mass effect nor midline shift. Again demonstrated are bilateral periventricular and basal ganglia T2 hyperintensities, which do not enhance and do not demonstrate diffusion restriction. There is mild age-related enlargement of ventricles and extra-axial CSF spaces. As previously described, high T2 low T1 signal abnormality lesions are seen in the posterior aspect of the lateral rectus muscles within each orbit. There are bilateral maxillary sinus polyps versus mucous retention cysts. Impression: 1.5 x 1.4 x 1.3 cm intensely enhancing lesion of the anterior and middle fossa, appearance of which is highly suggestive of meningioma. There is underlying edema of the right temporal lobe. There is mild local mass effect Left parietal encephalomalacia, also previously described, consistent with old infarct Bilateral periventricular and deep white matter T2 hyperintensities, consistent with chronic fibrotic changes. Possibility of demyelinating disease should also be considered. Note that none of these enhance. Other chronic and age-related changes, as described Bilateral orbital lesions, as described above and previously. Please refer to separate orbital MRI floor more specific analysis Bilateral sinus disease
--- NOTE | 2016-10-30 15:56 | Diagnostic Imaging Report ---
Indication: Abnormal dilated veins and bilateral ocular mass is demonstrated on recent CT and MRI Technique: Thin slice axial and coronal T1 fast spin echo, thin slice axial and postcontrast axial and coronal T1 fast spin-echo images of the orbit T2 fast spin-echo Comparison: Reference made to MRI brain and CT of the brain dated 10/28/2016 Findings: Bilaterally, the superior ophthalmic veins are dilated. They measure approximately 5 mm diameter. There is also prominence of the inferior ophthalmic veins, particularly in the region of the lateral rectus muscles posteriorly, corresponding to abnormality described on earlier imaging. There is intense contrast enhancement of all of the extraocular muscles bilaterally, but this is a normal finding. The cavernous sinus itself appears unremarkable, not dilated. Typical vascular flow voids are seen within the carotid arteries. The optic globes appear unremarkable. The optic nerves appear unremarkable. Intracranial abnormalities are discussed on separate brain MRI report. Impression: Bilateral dilated superior ophthalmic veins. In addition, also demonstrated are dilated but also variceal inferior ophthalmic veins, which accounts for the abnormality of the lateral rectus muscle described on previous studies. The 2 main differential considerations are carotid cavernous fistula and increased intracranial pressure. Note that other signs of carotid-cavernous fistula or increased intracranial pressure are not demonstrated however. Correlation with clinical findings is recommended. Other differential considerations include Graves' ophthalmopathy, orbital pseudotumor. There as also been described in the literature an entity of cryptogenic enlargement of the bilateral superior ophthalmic veins.
[2016-10-30 16:07] VITALS: BP 148/70
--- NOTE | 2016-10-30 19:53 | Cardiology Report ---
APPROVED REPORT EXAM: Two-dimensional and M-mode echocardiogram with Doppler and color Doppler. INDICATION Congestive Heart Failure M-Mode DIMENSIONS IVSd1.7 (0.7-1.1cm)Left Atrium (MM)4.8 (1.6-4.0cm) LVDd4.1 (3.5-5.6cm)Aortic Root3.0 (2.0-3.7cm) PWd1.4 (0.7-1.1cm)Aortic Cusp Exc.2.2 (1.5-2.0cm) LVDs2.1 (2.5-4.0cm) PWs2.1 cm Normal left ventricular chamber size, systolic function and wall motion. Left ventricular ejection fraction estimated to be 60 %. Mild left ventricular hypertrophy. Anterior Echo-free space, may be due to pericardial fat or effusion. Moderate right ventricular enlargement. Mild bi-atrial enlargement. Mild focal aortic valve sclerosis with adequate cusp excursion. Mildly thickened mitral valve leaflets with normal excursion. Mild mitral annulus and aortic root calcification. Normal pulmonic valve structure. Normal tricuspid valve structure. IVC dilated at 2.2 cm with physiologic collapse. A color flow and spectral Doppler study was performed and revealed: No aortic regurgitation. No mitral regurgitation. Mitral diastolic velocities suggest reduced left ventricular relaxation (Grade I). Mild tricuspid regurgitation. Tricuspid systolic velocities suggests peak right ventricular systolic pressure of 47 mmHg, consistent with moderate pulmonary hypertension. No pulmonic regurgitation present.
[2016-10-30 20:00] VITALS: BP 145/72
--- NOTE | 2016-10-30 20:11 | Cardiology Report ---
APPROVED REPORT EKG Measurement Heart [id number] Normal sinus rhythm Incomplete right bundle branch block Borderline ECG
[2016-10-30] MEDS: Atorvastatin 80mg tab ORAL SCH (21:15)
--- NOTE | 2016-10-30 21:25 | Neurology Progress Note ---
Interim History Interim History Interim History Mr. Min feels better. He is steady on his feet. He denies any new neurologic symptoms. He denies any specific weakness on one side or the other, numbness on one side or the other, problems with speech, problems with language, problems with vision , or problems with his memory. He also denies any headaches, nausea, vomiting, or any other neurological symptoms. Review of Systems Neuro Review of Systems Benign. Objective Physical Exam Last Vital Signs Date Time Temp Pulse Resp B/P Pulse Ox O2 Delivery O2 Flow Rate FiO2 10/30/16 20:00 98.4 89 21 145/72 98 Room Air Laboratory Tests Test 10/30/16 07:20 Sodium Level 136 mEQ/L (135-145) Potassium Level 5.0 mEQ/L (3.4-4.9) H Chloride Level 92 mEQ/L (98-107) L Carbon Dioxide Level 22 mEQ/L (20-30) Anion Gap 22 (5-15) H Blood Urea Nitrogen 53 mg/dL (7-23) H Creatinine 10.6 mg/dL (0.7-1.2) H Estimat Glomerular Filtration Rate 5.0 mL/min (>60) Glucose Level 102 mg/dL (74-106) Calcium Level 10.3 mg/dL (8.6-10.2) H Phosphorus Level 9.5 mg/dL (2.5-4.8) H Total Bilirubin 0.4 mg/dL (0.0-1.2) Aspartate Amino Transf (AST/SGOT) 11 U/L (5-40) Alanine Aminotransferase (ALT/SGPT) 7 U/L (3-41) Alkaline Phosphatase 98 U/L (40-129) Total Protein 8.0 g/dL (6.6-8.7) Albumin 3.7 g/dL (3.5-5.2) Globulin 4.3 g/dL Albumin/Globulin Ratio 0.8 (1.0-2.7) L Neurologic Exam Objective PHYSICAL EXAMINATION: GENERAL: He is a well-developed and well-nourished, obese gentleman, lying in bed, in no acute distress. HEAD: Normocephalic and atraumatic. EENT: Examination benign NECK: No neck rigidity was observed. NEUROLOGIC EXAMINATION: MENTAL STATUS EXAMINATION: He was awake and alert. He was oriented to person, place, and time. He was able to recall 3/3 words immediately after 1 and 3 minutes. He was able to remember president, Hill spontaneously but needed hints to remember through Obama. He could not remember presidents prior to that. His mathematical skills were fairly good. His visuospatial function was preserved. SPEECH: He had no dysarthria. LANGUAGE: He had no aphasia. CRANIAL NERVE EXAMINATION: II: The visual lay were intact to confrontation testing. III, IV & : The external ocular movements were full and the pupils were 3 mm in diameter, equal, round, regular, and reactive to light. V: He had normal facial sensations and the temporales, masseters, and pterygoids functioned normally. VII: He had a trace left VII central facial paresis. VIII: He was able to hear well bilaterally and had no nystagmus. IX: The palate moved symmetrically on phonation. X: He had no hoarseness of voice. XI: The sternocleidomastoids and trapezii functioned normally. XII: The tongue was in the midline without any fasciculations or atrophy. MOTOR SYSTEM: The tone was normal in all four extremities. Examination of muscle mass revealed wasting of the small foot muscles. Examination of power revealed grade 5/5 power in all muscle groups tested. He had no pronator drift. SENSORY EXAMINATION: He had intact sensations to pinprick and light touch except for altered sensations to both these modalities in an anklet stocking distribution. Position sense was diminished in the toes bilaterally but was normal in the fingers bilaterally. Graphesthesia was normal bilaterally. COORDINATION: He performed well on [id number] and qltq-vj-tkyd testing. On Romberg test, he swayed but did not fall to one side or the other. REFLEXES: 2+ and bilaterally symmetrical at the biceps, triceps, and brachioradialis, 2+ on the right and 3+ on the left at the knees, 0 at both ankles. The plantar responses were flexor bilaterally. STANCE: He stood up with a wide-base. GAIT: He walked with a wide-based gait. When he was made to walk on his heels and toes in both feet sagged. Impression/Recommendations Diagnostic Impression 1. Mr. 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 He became unsteady on his feet two days prior to admission and in addition felt unwell and generally weak. 2. He feels much better today. He feels that his gait has returned to his baseline.. 3. On neurological examination at this time he does have mild problems with memory, a trace left VII central facial paresis, brisker left knee jerk, decreased sensations to pinprick and light touch in anklet stocking distribution , decreased position sense in the toes bilaterally, swaying on Romberg test, a wide-based stance and gait with sagging of both feet when he is made to walk on his heels and toes. 4. Laboratory Data revealed that he was anemic with a hemoglobin of 11.5. He was hyponatremic with a sodium of 130 and chloride of 91, he was hyperkalemic with potassium of 6.2, his creatinine was elevated to 12.0, BUN was elevated to 63, his blood glucose was elevated to 190 and his hemoglobin A1c was elevated to 9%. His BNP was also elevated to 1535. His B12 level was normal at 495 and TSH was normal at 1.1. 5. The CT scan of the brain without contrast performed on 10/28/2016 revealed vasogenic edema involving the right temporal lobe extending into the right parietal area, internal and external capsules. In addition he also exhibited an old infarct in the left parietal lobe and some deep white matter changes. 6. The MRI scan of the brain performed on 10/28/2016 revealed a 13 x 15 x 17 mm sharply circumcised mass in the inferior periphery of the right middle cranial fossa with significant surrounding vasogenic edema. In addition, an old left parietal infarct was also seen. Sharply contoured smoothly marginated ovoid masses were present in the region of the posterior aspects of each lateral rectus muscle of the orbits. The exact characteristics of these masses was uncertain. 7. The MRI of the brain without and with gadolinium done on 10/30/16 revealed a 1.5 x 1.4 x 1.3 cm intensely enhancing lesion of the middle cranial fossa the appearance of which was highly suggestive of a meningioma. There was vasogenic edema of the right temporal lobe. There was mild local mass effect. Left parietal encephalomalacia consistent with old infarct was noted. Bilateral periventricular and deep white matter T2 hyperintensities, consistent with chronic ischemic changes were seen. 8. The patient's history neurological examination, laboratory data, and imaging studies are most compatible with unsteadiness on his feet related to the underlying neuropathic process with super added electrolyte imbalances causing worsening of his unsteadiness. His unsteadiness has improved significantly since he was hospitalized. 9. The right middle cranial fossa mass lesion is a meningioma. It is inciting a significant amount of vasogenic edema. However it does not explain his unsteadiness on the feet. It does however explain his mild left VII central facial paresis, brisker reflexes in the left knee and the memory problems that were not noted on his prior examination in August 2016. 10. The lesions involving his lateral rectus muscles are engorged blood vessels. Recommendations 1. Continue present management. 2. The patient's diabetes mellitus should be controlled better. 3. The patient's electrolyte imbalances should be corrected. 4. The patient should be evaluated by a neuro-oncologist for management of his meningioma. Carmelo Jarvis M.D., M.S.P.Benoit. CARMELO JARVIS Oct 30, 2016 21:25
[2016-10-31] VITALS: BP 119/62
[2016-10-31 04:00] VITALS: BP 135/64
[2016-10-31] MEDS: NovoLOG Insulin Flexpen SUBQ SCH ×4 (06:30→22:24)
[2016-10-31] MEDS: Aspirin EC 81mg tab ORAL SCH (08:15)
[2016-10-31] MEDS: Thiamine 100mg tab ORAL SCH (08:15)
[2016-10-31] MEDS: Docusate 100mg cap ORAL SCH ×3 (08:15→17:01)
[2016-10-31] MEDS: Carvedilol 25mg Tab ORAL SCH ×2 (08:16→22:06)
[2016-10-31] MEDS: Vitamin B12 1000mcg/ml Inj SUBQ SCH (08:16)
[2016-10-31] MEDS: Aluminum Hydroxide Gel Susp 15ml ORAL SCH ×4 (08:48→22:04)
[2016-10-31] MEDS: Levemir Flexpen SUBQ SCH ×2 (08:49→22:25)
[2016-10-31] MEDS: Heparin 5000 units/ml inj SUBQ SCH ×2 (08:50→22:11)
[2016-10-31 08:56] VITALS: BP 125/56
--- NOTE | 2016-10-31 11:35 | General Progress Note ---
Assessment/Plan Status: stable Status Narrative The right middle cranial fossa mass lesion is a meningioma. It is inciting a significant amount of vasogenic edema. However it does not explain his unsteadiness on the feet. Assessment/Plan status; 1) Inability to ambulate- ? Neuropathy and abnormal MRI of brain: MRI scan of the brain performed on 10/28/2016 reveals a 13 x 15 x 17 mm sharply circumcised mass in the inferior periphery of the right middle cranial fossa with significant surrounding vasogenic edema. (2) Chronic Cellulitis LEs (3) ESRD (end stage renal disease) on dialysis, High K (4) IDDM (insulin dependent diabetes mellitus) (5) Peripheral edema (6) HTN (hypertension) Plan: Neuro eval appreciated- will discuss with Dr Jarvis HD 10/30 again after MRI with & without contrast was done- HD in am again BP and BS control- PT OT per Neuro ? DC in am ECF vs Home - after HD Subjective ROS Limited/Unobtainable: No Constitutional: Reports: malaise Allergies: Coded Allergies: No Known Allergies (Unverified , 06/01/14) Objective Last 24 Hour Vital Signs Date Time Temp Pulse Resp B/P Pulse Ox O2 Delivery O2 Flow Rate FiO2 10/31/16 08:56 97.9 81 18 125/56 95 Room Air 10/31/16 08:16 83 135/64 10/31/16 04:00 83 10/31/16 04:00 98.0 88 21 135/64 98 Room Air 10/31/16 00:00 81 10/31/16 00:00 97.6 82 19 119/62 94 Room Air 10/30/16 21:33 89 145/72 10/30/16 20:00 98.4 89 21 145/72 98 Room Air 10/30/16 20:00 99 10/30/16 17:56 Room Air 10/30/16 16:07 97.9 81 18 148/70 98 Room Air 10/30/16 16:00 84 10/30/16 15:25 Room Air 10/30/16 12:11 97.3 84 18 149/79 94 Room Air 10/30/16 12:00 85 Intake and Output 10/30/16 10/31/16 19:00 07:00 Intake Total 840 ml 200 ml Balance 840 ml 200 ml Intake Oral 840 ml 200 ml # Voids 2 # Bowel Movements 2 Height (Feet): 6 Height (Inches): 0.00 Weight (Pounds): 270 General Appearance: no apparent distress Cardiovascular: normal rate Respiratory/Chest: decreased breath sounds Abdomen: soft Neurologic: other - steady on feet Objective no other changes MARIANNE CLEMENTE Oct 31, 2016 11:34
[2016-10-31 11:49] VITALS: BP 127/66
[2016-10-31 16:10] VITALS: BP 148/69
--- NOTE | 2016-10-31 19:17 | Neurology Progress Note ---
Interim History Interim History Interim History Mr. Min feels better. He is steady on his feet. he still has achy proximal lower-extremity muscles. He denies any new neurologic symptoms. He denies any specific weakness on one side or the other, numbness on one side or the other, problems with speech, problems with language, problems with vision , or problems with his memory. He also denies any headaches, nausea, vomiting, or any other neurological symptoms. Review of Systems Neuro Review of Systems Benign. Objective Physical Exam Last Vital Signs Date Time Temp Pulse Resp B/P Pulse Ox O2 Delivery O2 Flow Rate FiO2 10/31/16 16:25 75 10/31/16 16:10 97.3 18 148/69 94 Room Air Neurologic Exam Objective PHYSICAL EXAMINATION: GENERAL: He is a well-developed and well-nourished, obese gentleman, sitting up in a chair, in no acute distress. HEAD: Normocephalic and atraumatic. EENT: Examination benign NECK: No neck rigidity was observed. NEUROLOGIC EXAMINATION: MENTAL STATUS EXAMINATION: He was awake and alert. He was oriented to person, place, and time. He was able to recall 3/3 words immediately after 1 and 3 minutes. He was able to remember president, Trump spontaneously but needed hints to remember through Obama. He could not remember presidents prior to that. His mathematical skills were fairly good. His visuospatial function was preserved. SPEECH: He had no dysarthria. LANGUAGE: He had no aphasia. CRANIAL NERVE EXAMINATION: II: The visual lay were intact to confrontation testing. III, IV & : The external ocular movements were full and the pupils were 3 mm in diameter, equal, round, regular, and reactive to light. V: He had normal facial sensations and the temporales, masseters, and pterygoids functioned normally. VII: He had a trace left VII central facial paresis. VIII: He was able to hear well bilaterally and had no nystagmus. IX: The palate moved symmetrically on phonation. X: He had no hoarseness of voice. XI: The sternocleidomastoids and trapezii functioned normally. XII: The tongue was in the midline without any fasciculations or atrophy. MOTOR SYSTEM: The tone was normal in all four extremities. Examination of muscle mass revealed wasting of the small foot muscles. Examination of power revealed grade 5/5 power in all muscle groups tested. He had no pronator drift. SENSORY EXAMINATION: He had intact sensations to pinprick and light touch except for altered sensations to both these modalities in an anklet stocking distribution. Position sense was diminished in the toes bilaterally but was normal in the fingers bilaterally. Graphesthesia was normal bilaterally. COORDINATION: He performed well on [id number] and [id number]-or-[id number] testing. On Romberg test, he swayed but did not fall to one side or the other. REFLEXES: 2+ and bilaterally symmetrical at the biceps, triceps, and brachioradialis, 2+ on the right and 2++ on the left at the knees, 0 at both ankles. The plantar responses were flexor bilaterally. STANCE: He stood up with a wide-base. GAIT: He walked with a wide-based gait. When he was made to walk on his heels and toes in both feet sagged. Impression/Recommendations Diagnostic Impression 1. Mr. 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 He became unsteady on his feet two days prior to admission and in addition felt unwell and generally weak. 2. He feels much better today. He feels that his gait has returned to his baseline. He still has achy thigh muscles. 3. On neurological examination at this time he does have mild problems with memory, a trace left VII central facial paresis, brisker left knee jerk, decreased sensations to pinprick and light touch in anklet stocking distribution , decreased position sense in the toes bilaterally, swaying on Romberg test, a wide-based stance and gait with sagging of both feet when he is made to walk on his heels and toes. 4. Laboratory Data revealed that he was anemic with a hemoglobin of 11.5. He was hyponatremic with a sodium of 130 and chloride of 91, he was hyperkalemic with potassium of 6.2, his creatinine was elevated to 12.0, BUN was elevated to 63, his blood glucose was elevated to 190 and his hemoglobin A1c was elevated to 9%. His BNP was also elevated to 1535. His B12 level was normal at 495 and TSH was normal at 1.1. 5. The CT scan of the brain without contrast performed on 10/28/2016 revealed vasogenic edema involving the right temporal lobe extending into the right parietal area, internal and external capsules. In addition he also exhibited an old infarct in the left parietal lobe and some deep white matter changes. 6. The MRI scan of the brain performed on 10/28/2016 revealed a 13 x 15 x 17 mm sharply circumcised mass in the inferior periphery of the right middle cranial fossa with significant surrounding vasogenic edema. In addition, an old left parietal infarct was also seen. Sharply contoured smoothly marginated ovoid masses were present in the region of the posterior aspects of each lateral rectus muscle of the orbits. The exact characteristics of these masses was uncertain. 7. The MRI of the brain without and with gadolinium done on 10/30/16 revealed a 1.5 x 1.4 x 1.3 cm intensely enhancing lesion of the middle cranial fossa the appearance of which was highly suggestive of a meningioma. There was vasogenic edema of the right temporal lobe. There was mild local mass effect. Left parietal encephalomalacia consistent with old infarct was noted. Bilateral periventricular and deep white matter T2 hyperintensities, consistent with chronic ischemic changes were seen. 8. The patient's history neurological examination, laboratory data, and imaging studies are most compatible with unsteadiness on his feet related to the underlying neuropathic process with super added electrolyte imbalances causing worsening of his unsteadiness. His unsteadiness has improved significantly since he was hospitalized. 9. The right middle cranial fossa mass lesion is a meningioma. It is inciting a significant amount of vasogenic edema. However it does not explain his unsteadiness on the feet. It does however explain his mild left VII central facial paresis, brisker reflexes in the left knee and the memory problems that were not noted on his prior examination in August 2016. 10. The lesions involving his lateral rectus muscles are engorged blood vessels. Recommendations 1. Continue present management. 2. The patient's diabetes mellitus should be controlled better. 3. The patient's electrolyte imbalances should be corrected. 4. The patient should be evaluated by a neuro-oncologist for management of his meningioma. Discussed with Dr. Gómez. Carmelo Mera M.D., M.S.P.H. CARMELO MERA Oct 31, 2016 19:17
[2016-10-31 20:00] VITALS: BP 158/75
[2016-10-31] MEDS: Atorvastatin 80mg tab ORAL SCH (22:11)
[2016-11-01] VITALS: BP 151/78
[2016-11-01 04:00] VITALS: BP_SYST 107; BP_SYST 152; BP_DIAS 71; BP_DIAS 82
[2016-11-01] MEDS: NovoLOG Insulin Flexpen SUBQ SCH ×2 (06:52→12:08)
[2016-11-01 06:55] LABS: ALBUMIN/GLOBULIN RATIO 0.8 (1.0-2.7); CALCIUM 9.9 mg/dL (8.6-10.2); CREATININE 11.7 mg/dL (0.7-1.2); CRP QUANT 4.9 mg/dL (< 0.5); GLOMERULAR FILTRATION RATE 4.4 mL/min (>60); MAGNESIUM 2.3 mg/dL (1.7-2.5); PHOSPHORUS 7.8 mg/dL (2.5-4.8); POTASSIUM 4.5 mEQ/L (3.4-4.9); TOTAL PROTEIN 7.4 g/dL (6.6-8.7); URIC ACID 7.2 mg/dL (3.0-7.5)
[2016-11-01 06:56] LABS: BASOPHILS % (AUTO) 1.5 % (0.0-2.0); EOSINOPHILS % (AUTO) 6.1 % (0.0-3.0); LYMPHOCYTES % (AUTO) 17.9 % (20.0-45.0); MEAN CORPUSCULAR HEMOGLOBIN 31.7 PG (27.0-31.0); MEAN CORPUSCULAR HGB CONC 33.1 G/DL (32.0-36.0); MEAN CORPUSCULAR VOLUME 96 FL (80-99); MEAN PLATELET VOLUME 9.5 FL (6.5-10.1); MONOCYTES % (AUTO) 11.8 % (1.0-10.0); NEUTROPHILS % (AUTO) 62.8 % (45.0-75.0); PLATELET COUNT 161 K/UL (150-450); RED BLOOD COUNT 3.61 M/UL (4.70-6.10); RED CELL DISTRIBUTION WIDTH 15.8 % (11.6-14.8); WHITE BLOOD COUNT 6.3 K/UL (4.8-10.8)
[2016-11-01 08:00] VITALS: BP 152/72
[2016-11-01] MEDS: Heparin 5000 units/ml inj SUBQ SCH (09:00)
[2016-11-01] MEDS: Carvedilol 25mg Tab ORAL SCH (09:00)
[2016-11-01] MEDS: Docusate 100mg cap ORAL SCH ×2 (09:00→13:00)
[2016-11-01] MEDS: Thiamine 100mg tab ORAL SCH (09:00)
[2016-11-01] MEDS: Aspirin EC 81mg tab ORAL SCH (09:00)
[2016-11-01] MEDS: Aluminum Hydroxide Gel Susp 15ml ORAL SCH ×2 (09:00→13:00)
[2016-11-01] MEDS: Levemir Flexpen SUBQ SCH (09:00)
[2016-11-01] MEDS: Vitamin B12 1000mcg/ml Inj SUBQ SCH (09:00)
--- NOTE | 2016-11-01 11:38 | General Progress Note ---
Assessment/Plan Status: stable Assessment/Plan Status; 1) Inability to ambulate- ? Neuropathy and abnormal MRI of brain: MRI scan of the brain performed on 10/28/2016 reveals a 13 x 15 x 17 mm sharply circumcised mass in the inferior periphery of the right middle cranial fossa with significant surrounding vasogenic edema. (2) Chronic Cellulitis LEs (3) ESRD (end stage renal disease) on dialysis, High K (4) IDDM (insulin dependent diabetes mellitus) (5) Peripheral edema (6) HTN (hypertension) Plan: Patient decided to go home with HH, Per Dr Jarvis will have OP FU with Neurosurgical oncologist Kevin Rebolledo [phone] Femi Raygoza [phone] Patient to make OP appointment and visit one of the above MDs with the copies of hi MRI- All explained Dialysed today 11/01 next OP 11/03 Subjective ROS Limited/Unobtainable: No Allergies: Coded Allergies: No Known Allergies (Unverified , 06/01/14) Objective Last 24 Hour Vital Signs Date Time Temp Pulse Resp B/P Pulse Ox O2 Delivery O2 Flow Rate FiO2 11/01/16 08:00 97.7 87 20 152/72 96 Room Air 11/01/16 07:55 Room Air 11/01/16 04:00 98.2 83 22 107/71 100 Room Air 11/01/16 04:00 89 11/01/16 00:00 97.8 88 22 151/78 98 Room Air 11/01/16 00:00 88 10/31/16 22:06 80 10/31/16 20:00 81 10/31/16 20:00 97.7 80 20 158/75 98 Room Air 10/31/16 16:25 75 10/31/16 16:10 97.3 88 18 148/69 94 Room Air 10/31/16 11:49 97.5 77 18 127/66 95 Room Air 10/31/16 11:42 76 Intake and Output 10/31/16 11/01/16 19:00 07:00 Intake Total 360 ml Balance 360 ml Intake Oral 360 ml # Voids 3 Current Medications Medications (Trade) Dose Ordered Sig/Charly Route PRN Reason Start Time Stop Time Status Last Admin Dose Admin Aluminum Hydroxide (Amphojel) 1,920 mg QID ORAL 10/29/16 10:00 11/28/16 09:59 10/31/16 22:04 Aspirin (Ecotrin) 81 mg DAILY ORAL 10/29/16 09:00 11/28/16 08:59 10/31/16 08:15 Atorvastatin Calcium (Lipitor) 80 mg BEDTIME ORAL 10/29/16 21:00 11/28/16 20:59 10/31/16 22:11 Carvedilol (Coreg) 25 mg EVERY 12 HOURS ORAL 10/29/16 09:00 11/28/16 08:59 10/31/16 22:06 Clonidine HCl (Catapres) 0.1 mg Q4HR PRN ORAL BP over 160 syst 10/28/16 22:15 11/27/16 22:14 Dextrose (Dextrose 50%) STAT PRN IV Hypoglycemia 10/29/16 01:00 11/28/16 00:59 Docusate Sodium (Colace) 100 mg TID ORAL 10/29/16 09:00 11/28/16 08:59 10/31/16 17:01 Folic Acid (Folate) 2 mg DAILY ORAL 10/30/16 10:00 11/29/16 09:59 10/31/16 08:16 Heparin Sodium (Porcine) (Heparin 5000 units/ml) 5,000 units EVERY 12 HOURS SUBQ 10/29/16 21:00 11/28/16 20:59 10/31/16 22:11 Insulin Aspart (NovoLOG) BEFORE MEALS AND HS SUBQ 10/29/16 06:30 11/28/16 06:29 11/01/16 06:52 Insulin Detemir (Levemir) 35 units EVERY 12 HOURS SUBQ 10/29/16 23:00 11/28/16 22:59 10/31/16 22:25 Sevelamer Carbonate (Renvela) 3,200 mg THREE TIMES A DAY ORAL 10/29/16 13:00 11/28/16 12:59 10/31/16 17:00 Thiamine HCl (Vitamin B1) 100 mg DAILY ORAL 10/30/16 10:00 11/29/16 09:59 10/31/16 08:15 Laboratory Tests 11/01/16 06:10: White Blood Count 6.3, Red Blood Count 3.61L, Hemoglobin 11.4L, Hematocrit 34.6L , Mean Corpuscular Volume 96, Mean Corpuscular Hemoglobin 31.7H, Mean Corpuscular Hemoglobin Concent 33.1, Red Cell Distribution Width 15.8H, Platelet Count 161, Mean Platelet Volume 9.5, Neutrophils (%) (Auto) 62.8, Lymphocytes (%) (Auto) 17.9L, Monocytes (%) (Auto) 11.8H, Eosinophils (%) (Auto ) 6.1H, Basophils (%) (Auto) 1.5, Sodium Level 134L, Potassium Level 4.5, Chloride Level 92L, Carbon Dioxide Level 22, Anion Gap 20H, Blood Urea Nitrogen 61H, Creatinine 11.7H, Estimat Glomerular Filtration Rate 4.4, Glucose Level 151H, Uric Acid 7.2, Calcium Level 9.9, Phosphorus Level 7.8H, Magnesium Level 2.3, Total Bilirubin 0.3, Aspartate Amino Transf (AST/SGOT) 9, Alanine Aminotransferase (ALT/SGPT) 7, Alkaline Phosphatase 93, C-Reactive Protein, Quantitative 4.9H, Total Protein 7.4, Albumin 3.5, Globulin 3.9, Albumin/ Globulin Ratio 0.8L Height (Feet): 6 Height (Inches): 0.00 Weight (Pounds): 270 General Appearance: no apparent distress, other - on HD now Cardiovascular: normal rate Respiratory/Chest: decreased breath sounds Abdomen: soft Objective no other changes MARIANNE CLEMENTE Nov 01, 2016 11:38
[2016-11-01] MEDS ORDERED: RENVELA800 MG ORAL (11:39)
--- NOTE | 2016-11-01 11:41 | Discharge Instructions ---
Discharge Instructions Discharge Instructions Follow up with: with my office to arrange NeuroSurg-Onc specialist appointment and FU Services at Discharge: physical therapy Diet: renal (80g protein, 2GM) Special Instructions diet control- Sugar control FU with specialists For Congestive Heart Failure Reminder Report to your physician any weight gain of 5 pounds or more in one week. MARIANNE CLEMENTE Nov 01, 2016 11:41
[2016-11-01 12:00] VITALS: BP 115/63
--- NOTE | 2016-11-02 10:09 | Discharge Summary ---
Discharge Summary Hospital Course Date of Admission Oct 28, 2016 at 23:21 Date of Discharge Nov 01, 2016 at 13:32 Admitting Diagnosis gen.weakness,ESRD,hyperkalemia HPI Alex Min is a 61 year old male who was admitted on Oct 28, 2016 at 23 :21 for Generalized Esrd Weakness,Hyperkalemia,Focal Cer Hospital Course [id number] Discharge Discharge Disposition Patient was discharged to Home (01) Discharge Diagnoses: Discharge Instructions Discharge Instructions Follow up with: with my office to arrange NeuroSurg-Onc specialist appointment and FU Services Upon Discharge: physical therapy Ayaka Jacobs NP Nov 02, 2016 10:09
--- NOTE | 2016-11-03 03:00 | Discharge Summary 2 SIG ---
DATE OF ADMISSION: 10/28/2016 DATE OF DISCHARGE: 11/01/2016 CONSULTANTS: Gaurav Jarvis M.D. BRIEF HOSPITAL COURSE: The patient is a 61-year-old male with end-stage renal disease and is on dialysis Saturday, , and Saturday. He presented to ED complaining of generalized weakness. On evaluation at ED, EKG showed normal sinus rhythm, rate of 85 with noted peaking of his T-waves. Potassium was 6.1 and creatinine was 10.7. 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 Head MRI showed a 1.7 mass in the right middle cranial fossa. Due to inability to walk and abnormal CT and MRI imaging, the patient was admitted for further evaluation. The patient was admitted to telemetry and was seen by Dr. Jarvis. He underwent MRI of the brain with and without contrast with MRI of the orbit, face, and neck. MRI revealed enhancing lesion on the middle cranial fossa highly suggestive of meningioma. There was vasogenic edema to the right temporal lobe. The right middle cranial fossa mass lesion however does not explain unsteadiness on the feet. It does however explains mild left seventh central facial paralysis, brisker reflexes in the left knee, and memory problems that were noted on his prior examination on August 2016. Unsteadiness on his feet probably related to underlying neuropathic process with added electrolyte imbalances causing worsening of his unsteadiness. His unsteadiness has improved significantly over the course of his hospitalization. The patient was discharged home with home health to follow up with neurosurgical oncologist, Dr. Rebolledo and Dr. Raygoza. Referrals were given to the patient and was informed to make followup appointments. He was given inpatient dialysis and was eventually discharged home. FINAL DIAGNOSES: 1. Inability to ambulate secondary to neuropathy and abnormal MRI findings. 2. 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 3. Chronic lower extremity cellulitis. 4. End-stage renal disease, on hemodialysis. 5. Hyperkalemia. 6. Insulin-dependent diabetes mellitus. 7. Peripheral edema. 8. Hypertension. Jus Gómez M.D. I have been assigned to dictate discharge summary on this account and I was not involved in the patient's management. Ayaka Jacobs N.P. DR: Emerson JOB#: [id number] CC: RITCHIE
== END 2016-11-01 13:32 | disposition home health service (06) | DRG 54 ==
LOC: EMR 18:10 → EDBEDREQ 22:23 → 2E 23:21
PROC: 5A1D60Z (ICD-10-PCS; principal; 2016-10-29)
DX: D32.0 Benign neoplasm of cerebral meninges (principal); N18.6 End stage renal disease; G93.6 Cerebral edema; E11.22 Type 2 diabetes mellitus with diabetic chronic kidney disease; I12.0 Hypertensive chronic kidney disease with stage 5 chronic kidney disease or end stage renal disease; L03.115 Cellulitis of right lower limb; E87.1 Hypo-osmolality and hyponatremia; L03.116 Cellulitis of left lower limb; E11.40 Type 2 diabetes mellitus with diabetic neuropathy, unspecified; E87.5 Hyperkalemia; D64.9 Anemia, unspecified; Z99.2 Dependence on renal dialysis; I69.90 Unspecified sequelae of unspecified cerebrovascular disease; Z79.4 Long term (current) use of insulin; I69.30 Unspecified sequelae of cerebral infarction; R42 Dizziness and giddiness; R26.81 Unsteadiness on feet; G51.0 Bell's palsy; R60.9 Edema, unspecified
CPT/HCPCS: 36415; 70450; 70543; 70551; 70553; 71010; 80053; 80061; 82550; 82553; 82607; 82746; 82962; 82977; 83036; 83735; 83880; 84100; 84443; 84484; 84550; 85025; 86140; 87081; 93005; 93306; A9585; J1815; S5561